=== PATIENT | female | born 1995 | race Caucasian/White ===

== ENCOUNTER 2017-12-16 13:28 | Emergency (ER) | END 2017-12-16 16:58 | disposition home or self-care (01) ==

== ENCOUNTER 2018-05-07 21:38 | Emergency (ER) | payer SELFPAY ==
[~2018-05-07] VITALS: Ht 157.5 cm; Wt 88.9 kg
[~2018-05-07 21:38] MED LIST: ACET325T33 PO; ALBU8.5H8 INH; AZIT250T PO; CEFD300C2 PO; IBUP-1542 PO; NAPR-985 PO; PRED50TA PO
[2018-05-07 21:41] VITALS: Ht 157.5 cm; Wt 88.9 kg
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
[2018-05-08] MEDS ORDERED: IBUPROFEN LIQUID (PED) 20 MG/ML CUP PO STA (00:29)
[2018-05-08] MEDS ORDERED: ACETAMINOPHEN 650MG/20.3ML CUP PO ONE (00:30)
[2018-05-08] MEDS ORDERED: LIDOCAINE 1% (MPF) 5 ML VIAL INFIL ONE (01:30)
[2018-05-08] MEDS ORDERED: AMOX500C2 PO (01:57)
[2018-05-08] MEDS ORDERED: IBUP-1561 PO (01:57)
[2018-05-08] MEDS ORDERED: TRAM50TA2 PO (01:57)
[2018-05-08 02:11] VITALS: BP 135/60; PULSE 96; RESP 18
== END 2018-05-08 02:22 | disposition home or self-care (01) ==
LOC: FTE 21:38
DX: S01.01XA Laceration without foreign body of scalp, initial encounter (principal); S02.641D Fracture of ramus of right mandible, subsequent encounter for fracture with routine healing; Y04.8XXA Assault by other bodily force, initial encounter
CPT/HCPCS: 70450; 70486; 81025